=== PATIENT | female | born 1945 | race Two or more races ===

== ENCOUNTER 2017-04-04 11:33 | Inpatient (IN) | payer SELFPAY ==
[~2017-04-04] VITALS: Ht 152.4 cm; Wt 51.3 kg
--- NOTE | ~2017-04-04 | ECHO ---
Transthoracic Echocardiography Report (TTE) Demographics Patient Name EMILE PRINGLE, Date of Study 04/05/2017 KERMIT Shaffer Patient Number [id number] Visit Number [id number] Date of 1945 Room Number G6310 Gender Female Number Age 72 year(s) Referring Nataly Mckenna Shearer Operator Aileen RVT, RDCS Physician MD Sierra Physician Interpreting Lito Perdomo MD Grain Spouter Physician Supervising Ordering MD/MLP Physician Nurse Stress Plan Rep Conclusions Contractility Score Summary Normal Left Ventricular contractility was noted. Summary The estimated left ventricular ejection fraction is 60-65%. Mild concentric left ventricular hypertrophy. Diastolic assessment reveals Grade I diastolic dysfunction. Mild mitral regurgitation by color Doppler. There is mild aortic regurgitation by color Doppler. Mild tricuspid regurgitation by color Doppler. Procedure Type of Study TTE procedure:2D Echocardiogram, M-Mode, Doppler , Color Doppler. Procedure Date Date: 04/05/2017 Start: 10:28 AM Study Location: Inpatient Portable Technical Quality: Adequate visualization Indications:Chest pain and Coronary artery disease. Appropriate Use Criteria: 9 Patient Status: Routine HR: 83 bpm BP: 101/59 mmHg Allergies - No known allergies. M-Mode/2D Measurements LV Diastolic Dimension: 4.12 cm LV Systolic Dimension: 2.33 cm LV Septum Diastolic: 1.23 cm LV PW Diastolic: 1.04 cm AO Root Dimension: 2.3 cm Cardiac Output: 4.67 l/min AV Cusp Separation: 1.1 cm RV Diastolic Dimension: 2.14 cm LA volume: 28 ml LVOT: 1.7 cm RV Base: 2 cm LVOT VTI: 24.8 cm RV Mid: 1.74 cm LV Stroke volume: 56.26 ml TAPSE: 2.15 cm TDI-S': 11.7 cm/s Doppler Measurements AV Peak Velocity: 1.45 m/s MV Peak E-Wave: 1.14 m/s AV Peak Gradient: 8.41 mmHg MV Peak A-Wave: 1.37 m/s AV Mean Gradient: 5 mmHg MV E/A Ratio: 0.83 LVOT Peak Velocity: 0.99 m/s MV P1/2t: 66 msec AV P1/2t: 867 msec TR Gradient:22.66 mmHg PV Peak Velocity: 0.94 m/s Estimated RAP:3 mmHg PV Peak Gradient: 3.53 mmHg Estimated RVSP: 26 mmHg Estimated PASP: 25.66 mmHg E' Septal Velocity: 0.06 m/s A' Septal Velocity: 0.12 m/s E' Lateral Velocity: 0.06 m/s A' Lateral Velocity: 0.13 m/s Findings Left Ventricle Mild concentric left ventricular hypertrophy. Diastolic assessment reveals Grade I diastolic dysfunction. Anterior and septal regions demonstrate mild hypokinesis Right Ventricle Normal right ventricle structure and function. Left Atrium Normal left atrial size. Right Atrium Normal right atrial size. Mitral Valve Mild mitral annular calcification. Mild mitral regurgitation by color Doppler. Aortic Valve The aortic valve is mildly sclerotic. There is mild aortic regurgitation by color Doppler. Tricuspid Valve Mild tricuspid regurgitation by color Doppler. Pulmonic Valve Normal pulmonic valve structure and function. Pericardial Effusion No evidence of pericardial effusion. Pleural Effusion No evidence of pleural effusion. Contractility Score LV regional wall motion:(0-Non visualized 1-Normal 2-Hypokinesis 3-Akinesis 4-Dyskinesis 5-Aneurysm) Signature dtt: Conor Morse (cardio) dtd: 04/05/17 1028 Physician Self Edit
--- NOTE | ~2017-04-04 | DS ---
PATIENT'S NAME: [facility] AGE: 72 Y [address] ROOM: [place] [address] LOCATION: GPCU ADMIT DATE: 04/04/2017 Discharge Summary DISCHARGE DATE: 04/07/2017 FAMILY PHYSICIAN: PHYSICIAN, NO ATTENDING PHYSICIAN: Vikram Ingram DISCHARGE DIAGNOSES: 1. ST-elevation myocardial infarction. 2. Diabetes mellitus. 3. Hyperlipidemia. 4. High-risk medications. PROCEDURES: 1. On 04/04/2017, the patient was admitted and underwent emergent left heart catheterization, PTCA stenting of the LAD. 2. On 04/05/2015, echocardiogram showing an EF of 60% to 65%, grade 1 diastolic dysfunction. LABORATORY DATA: Troponin peaked at 48.4, CPK peaked at 821, CK-MB 37.6. Hemoglobin A1c was 10.8. Cholesterol 99, HDL 79, LDL was 37. Hemoglobin 14.6 to 10.8, hematocrit 41 to 33. Potassium was stable at 4.0, BUN 14, creatinine 0.7. HOSPITAL COURSE: This is a 72-year-old, [place]auan-speaking female from [place], who presented with complaints of shortness of breath. It became worse, therefore her family brought her into the ER. She is here from [place] visiting family. Her initial EKG showed ST elevation myocardial infarction and she was taken directly to heart catheterization receiving a stent to the LAD. Her pain was completely resolved after the heart catheterization. Her echocardiogram showed preserved EF and she was placed on beta-esme, DARIEL inhibitor, and aspirin therapy in addition to Brilinta. On 04/07/2017, she was discharged to home with the following medications: 1. Metformin 500 mg b.i.d. 2. NovoLog insulin 20 units in the morning and 12 in the evening. 3. NPH 12 units at bedtime. 4. Atorvastatin 20 mg daily. 5. Aspirin 81 mg daily. 6. Metoprolol 25 mg b.i.d. 7. Brilinta 90 mg b.i.d. She was instructed to follow up in [address] Morse for further evaluation. The patient verbalized understanding. Discharge was done through an enterprise services manager. PATIENT'S NAME: [facility] AGE: 72 Y [address] ROOM: [address] [place], [place] [address] LOCATION: GPCU ADMIT DATE: 04/04/2017 Discharge Summary DISCHARGE DATE: 04/07/2017 FAMILY PHYSICIAN: CHRISSY PATEL ATTENDING PHYSICIAN: Vikram Ingram GENA JENSEN APRN FOR MD ROXANNE GALLO/modl /[id number] d: 04/12/17623 t: 04/22/17 1011, DISCHARGE SUMMARY
--- NOTE | ~2017-04-04 | ER ---
PATIENT'S NAME: [facility] AGE: 72 Y [address] ROOM: [place] [address] LOCATION: GPCU ADMIT DATE: 04/04/2017 ER/Outpatient Report DISCHARGE DATE: FAMILY PHYSICIAN: PHYSICIAN, NO ATTENDING PHYSICIAN: YESSI CAMACHO Admission date and time documented on the medical record. I saw the patient at 1142 hours. CHIEF COMPLAINT: Shortness of breath. HISTORY OF PRESENT ILLNESS: This patient is a 72-year-old female, who around midnight developed shortness of breath. No chest pain. No nausea, vomiting, diaphoresis. No lightheadedness, dizziness, or weakness. Brought in by a private vehicle for evaluation. Just prior to coming in, her shortness of breath resolved. No headache, eyes, ears, nose, throat, neck, or spine pain. No abdominal pain. No diarrhea. No urinary frequency, urgency, or dysuria. No incontinence. No joint or muscle swelling, redness, or pain. No skin eruptions or rash. No history of neuro changes. She is an insulin-dependent diabetic. No psych issues. HOME MEDICATIONS: See attached medication list. ALLERGIES: NONE. SOCIAL HISTORY: Nonsmoker, nondrinker. SIGNIFICANT PAST MEDICAL HISTORY: Insulin-dependent diabetes mellitus, dyslipidemia. OPERATIONS: None. REVIEW OF SYSTEMS: All systems reviewed by me are negative with the exception of those discussed in the history of present illness. PHYSICAL EXAMINATION: VITAL SIGNS: Temperature 98.3 tympanic, pulse 100, respirations 16, blood pressure 176/81, O2 saturation on room air is 97%. Bishop Coma Scale was 15. PATIENT'S NAME: [facility] AGE: 72 Y [address] ROOM: [place] [address] LOCATION: GPCU ADMIT DATE: 04/04/2017 ER/Outpatient Report DISCHARGE DATE: FAMILY PHYSICIAN: PHYSICIAN, CHRISSY ATTENDING PHYSICIAN: YESSI CAMACHO HEAD: Normocephalic. EYES, EARS, NOSE, THROAT: Clear. Mucous membranes moist. NECK: No nuchal rigidity. No thyromegaly or cervical adenopathy. No carotid bruits. LUNGS: Clear. No rales, rhonchi, or wheezes. HEART: Regular. Pulses are palpable. No chest wall or ribcage pain to palpation. ABDOMEN: Soft, nondistended, nontender. Good bowel tones. No organomegaly or abnormal mass palpable. EXTREMITIES: Without peripheral edema, cyanosis, or deformity. NEUROVASCULAR: Intact. SKIN: Clear. No skin eruptions or rash. LABORATORY DATA AND X-RAYS: Chest x-ray shows no acute infiltrate but does look like she has some increased vascular congestion. EKG, I did review with silk washing machine operator who thought that she was having lateral myocardial infarction. Laboratory showed a white count of 14,600, 75 segs, 17 lymphs, 7 monos, 1 eo, hemoglobin was 13.9, hematocrit 41.0, platelet count is 282,000. PTT was 26, pro-time was 10.3 with an INR 0.98. D-dimer was normal at 0.48. ProBNP was elevated 5453. CMS was normal except for an elevated glucose of 338, elevated alkaline phosphatase 181, elevated AST of 85. Magnesium was 2.0. CPK was elevated at 804. CK-MB was elevated at 37.1. Troponin was elevated at 21.3. EMERGENCY DEPARTMENT COURSE: I did give the patient 4 baby aspirin. I did start her on heparin 5000 unit bolus followed by 1200 units/hour IV drip infusion. IMPRESSION: 1. Shortness of breath secondary to acute myocardial infarction, suspected lateral with possible congestive heart failure. 2. Insulin-dependent diabetes mellitus type 2. 3. History of dyslipidemia. PLAN: I did discuss this patient with Dr. Conor Morse, silk washing machine operator. Dr. Morse did review the EKG, did come down to see the patient, and decided to take the patient to laboratory immunologist. I did discuss my findings and recommendations with the patient through an pharmacy assistant. The patient did understand. Dr. Morse is going to evaluate the patient and will proceed on his recommendations. Accumulated critical care time 30 minutes. PATIENT'S NAME: KERMIT SOTO [facility] AGE: 72 Y [address] ROOM: G[address] [place], [place] [address] LOCATION: GPCU ADMIT DATE: 04/04/2017 ER/Outpatient Report DISCHARGE DATE: FAMILY PHYSICIAN: PHYSICIAN, NO ATTENDING PHYSICIAN: YESSI CAMACHO MD MILTON MAYFIELD/kamryn /[id number] d: 04/04/172008 t: 04/05/17 0613, OUTPATIENT REPORT
--- NOTE | ~2017-04-04 | CON ---
PATIENT'S NAME: [facility] AGE: 72 Y [address] ROOM: [place] [address] LOCATION: GPCU ADMIT DATE: 04/04/2017 Consultation DISCHARGE DATE: 04/07/2017 FAMILY PHYSICIAN: PHYSICIAN, NO ATTENDING PHYSICIAN: Vikram Ingram REFERRING PHYSICIAN: Conor Morse MD REFERRING PHYSICIAN: Vikram Ingram MD HISTORY OF PRESENT ILLNESS: This is a 72-year-old female, who presented to the emergency room yesterday with complaints of shortness of breath. Around midnight, she developed increased shortness of breath, but no chest discomfort. She denied nausea or vomiting. She had not had any problems with dizziness, lightheadedness, or weakness. She was brought to the emergency room by private car for the shortness of breath. An EKG showed that she was having ST-elevation myocardial infarction and she was taken directly to heart catheterization where she received a stent to the LAD. The patient is normally from [place] and was here visiting family, I believe that it was her daughter who had a baby. She had been in [place] prior to stopping in [place]. She is an insulin-dependent diabetic. She has been having some exertional shortness of breath. She denies previous history of coronary artery disease. PAST MEDICAL HISTORY: 1. Diabetes mellitus. 2. Hypertension. PAST SURGICAL HISTORY: 1. Total vaginal hysterectomy. 2. LASIK eye surgery in 2012. 3. Left heart catheterization, 04/04/2017 and stent to the LAD. 4. She has had 14 children vaginally. 5. A full set of dentures. FAMILY HISTORY: Mother of colon cancer at the age of 81. Father is alive but has never been a part of her or her siblings life. She has a brother who has heart troubles, he of cancer, and another brother who is an alcoholic which caused his demise. She is lifelong nonsmoker. She does not drink alcohol. ALLERGIES: NO KNOWN MEDICATION ALLERGIES. PATIENT'S NAME: [facility] AGE: 72 Y [address] ROOM: [place] [address] LOCATION: GPCU ADMIT DATE: 04/04/2017 Consultation DISCHARGE DATE: 04/07/2017 FAMILY PHYSICIAN: PHYSICIAN, NO ATTENDING PHYSICIAN: Vikram Ingram HOME MEDICATIONS: 1. Atorvastatin 20 mg every day. 2. Insulin Humulin 12 units subcutaneous every bedtime and 20 units every a.m. 3. Metformin 500 mg every day. MEDICATIONS IN THE HOSPITAL: 1. Aspirin 81 mg daily, now Brilinta 90 mg b.i.d. 2. Lipitor 80 mg daily. 3. Lopressor 25 mg b.i.d. 4. Vasotec 2.5 mg daily. 5. We will continue with her same insulin. 6. Metformin will be held due to the heart catheterization. REVIEW OF SYSTEMS: Obtained from the nurses intake: HEAD: No history of headache. EYES: No blurred vision or double vision. EARS: No problems with hearing. NOSE: No epistaxis or rhinorrhea. MOUTH: No gingival bleeding. She does have a full set of dentures. THROAT: Denies sore throat, hoarseness, or difficulty swallowing. PULMONARY: No cough or hemoptysis. She was complaining of some shortness of breath with exertion. GASTROINTESTINAL: Negative for nausea, vomiting, or diarrhea. No melena or hematochezia. GENITOURINARY: Negative for urinary frequency or urgency. She is post total hysterectomy. MUSCULOSKELETAL: No complaints of arthralgias or myalgias. NEUROLOGIC: Denies numbness or tingling or feeling off-balance. PHYSICAL EXAMINATION: VITAL SIGNS: She is 5 feet tall, weighs 117 pounds. Blood pressure is 130/60, heart rate is 70, and respirations are 18. SKIN: Warm, dry. HEENT: Mucous membranes are pink. Pupils are equal. They did react briskly. NECK: Soft and supple. No lymphadenopathy. No thyromegaly. JVD is flat. RESPIRATORY: Lung sounds are clear without evidence of wheezes, rales, or rhonchi. CARDIOVASCULAR: Regular with a normal S1 and S2. ABDOMEN: Soft. Bowel sounds are present. EXTREMITIES: Show no peripheral edema. No clubbing and no cyanosis. Distal pulses are 2+/4. LABORATORY DATA AND IMAGING STUDIES: PATIENT'S NAME: KERMIT SOTO [facility] AGE: 72 Y [address] ROOM: [place] [address] LOCATION: GPCU ADMIT DATE: 04/04/2017 Consultation DISCHARGE DATE: 04/07/2017 FAMILY PHYSICIAN: PHYSICIAN, NO ATTENDING PHYSICIAN: Vikram Ingram Cardiac enzymes; troponin I was 21.3, today is down to 17; CPK was 804, now 498; ProBNP was 5453; and CK-MB was 37.1, today is 14.6. Her hemoglobin is 11.4 to 13.9, platelets are 282,000. BUN was 14, creatinine 0.8. Glucose on admission was 338. Her hemoglobin A1c was found to be 10.8, cholesterol 99, triglycerides 79, HDL 47, and her LDL was 37. Chest x-ray showed no acute infiltrates, but she did have some increased vascular congestion. EKG was showing lateral changes, ST-elevation. ASSESSMENT AND PLAN: 1. ST-elevation myocardial infarction. She was taken directly to heart catheterization. Underwent a left heart catheterization with percutaneous transluminal coronary intervention and stenting of the left anterior descending. An echocardiogram will be obtained and further recommendations will be forthcoming regarding her ejection fraction. 2. Insulin-dependent diabetes mellitus. We will defer that to Dr. Ingram. 3. History of dyslipidemia. She is to continue with her statin therapy. The assessment and plan, history of present illness, and physical exam are per Dr. Morse. GENA JENSEN APRN FOR MD ROXANNE GALLO/kamryn /[id number] d: 04/05/17 1828 t: 04/11/17 0953, CONSULTATION REPORT
--- NOTE | ~2017-04-04 | HP ---
PATIENT'S NAME: EMILE HUDSON [facility] AGE: 72 Y [address] [place]OM: [facility] [place] [place] [address] [facility] ADMIT DATE: 04/04/2017 History & Physical DISCHARGE DATE: FAMILY PHYSICIAN: PHYSICIAN, NO ATTENDING PHYSICIAN: YESSI CAMACHO DATE OF SERVICE: CHIEF COMPLAINT: Chest pain and shortness of breath. HISTORY OF PRESENT ILLNESS: This is a 72-year-old [place] female who presented to the emergency room with shortness of breath. She was seen here by Dr. Colin Jules. I have reviewed the emergency room notation, lab, and her x-rays and accepted her. The patient presented to the emergency room and was found by chest x-ray to have no acute infiltrate, but perhaps increased vascular congestion. Her EKG suggested a possible lateral wall MA. [place] [address], hemoglobin 13.9, and platelet count was adequate. PTT was 26, pro-time 10.8, and INR was 0.98. D-dimer was 0.48. ProBNP was 5453. CMS was normal. Blood glucose was up at 338, alkaline phosphatase 181, AST 85, magnesium was 2. CPK was elevated at 804, CPK-MB was 37.1, troponin up at 21.3. The patient was given aspirin in the emergency room and started on heparin drip and seen in consultation by Dr. Conor Morse, transformer molder, and the patient was taken to the labor mediator. I have been asked to follow her as a primary care physician because she does not have one here in town. When I see her on the morning of 04/05/2017, she is resting quietly in bed with the family member at the bedside, but she does not speak any Georgian. PHYSICAL EXAMINATION: VITAL SIGNS: Noted. HEENT: Exam is benign. NECK: Unremarkable. I did not listen for a bruit. HEART: Regular rhythm. I do not hear a murmur. LUNGS: Decreased throughout. ABDOMEN: Soft. PELVIC AND RECTAL: Not done. EXTREMITIES: Trace edema. NEUROLOGIC: Grossly intact. IMPRESSION: 1. Acute lateral wall myocardial infarction. 2. Diabetes mellitus type 2 with poor control. 3. History of dyslipidemia. PATIENT'S NAME: [facility] AGE: 72 Y [address] ROOM: [place] [address] [facility] ADMIT DATE: 04/04/2017 History & Physical DISCHARGE DATE: FAMILY PHYSICIAN: PHYSICIAN, NO ATTENDING PHYSICIAN: YESSI CAMACHO 4. Jqk-IA-qobmrivph myocardial infarction. PLAN: Follow daily. Diabetic teaching. Sliding scale insulin. Sugars a.c. and q.h.s. MD JASON ALVARADO/kamryn /[id number] D: [id number] T: [id number] HISTORY & PHYSICAL
--- NOTE | ~2017-04-04 | CATH ---
Cardiac Diagnostic + PCI Report Demographics Patient Name EMILE PRINGLE Gender Female KERMIT Shaffer Date of 1945 Age 72 year(s) Patient Number [id number] Date of Study 04/04/2017 Visit Number [id number] Room Number G63[address] [place] [id number] Ht 152.4 cm Wt 109 kg Referring Lito Perdomo MD Primary Physician Physician Performing Lito Perdomo MD Secondary Physician Physician Diagnostic Lito Perdomo MD Assisting Physician Physician Interventional Lito Perdomo MD Physician Litigation Partner Physician Findings and Conclusions Diagnostic Findings and Conclusion 1 Vessel CAD Diagnostic Recommendations PCI of LAD Interventional Findings and Conclusion Successful PCI of the mid LAD coronary artery using a Drug Eluting stent using a 2.5 X 15 Emerge and 2.75 X 20 Promus inflated to 3.0 with 0% residual Interventional Recommendations DAPT X 1 year Manual pressure for hemostasis Procedure Description The patient was brought to the diagnostic cardiac catheterization-EP laboratory by emergency personal. Physician deemed procedure as EMERGENT. The planned puncture-incision site(s) were shaved and prepped with ChloraPrep and draped in the usual sterile manner. Conscious sedation, supplemental oxygen, and pain control medications were delivered by a registered nurse under physician guidance. Surface ECG rhythm, blood pressure measurement, and pulse oximetry were monitored throughout the procedure. Arterial access. The access site was infiltrated with lidocaine. The vessel was entered with the Seldinger technique. A sheath was advanced into the vessel and used for catheter placement. Selective left coronary angiography. A catheter was advanced into the left coronary vessel ostium under Fluoroscopic guidance. Contrast was injected by hand. Images were obtained in multiple projections. Selective right coronary angiography. A catheter was advanced into the right coronary vessel ostium under fluoroscopic guidance. Contrast was injected by hand. Images were obtained in multiple projections. Left heart catheterization. A catheter was advanced across the aortic valve to the left ventricle under fluoroscopic guidance. Resting hemodynamics were obtained. Angioplasty and Stent Placement: A guiding catheter was used to intubate the vessel. A 0.14 wire was then used to cross the lesion. A balloon catheter was placed across the lesion and inflated. The balloon catheter was then removed. A Drug Eluting Stent was placed and inflated. Post placement angiograms were performed. Arterial artery hemostasis was achieved. The patient was transferred to a regular nursing floor via cart accompanied by a nurse. The patient left the laboratory in stable condition. Diagnostic Cath Status: Emergency Interventional Cath Status: Emergency Procedure Procedure Type Diagnostic procedure:Angiography:, Coronary Angios /[facility] PCI procedure:Drug Eluting Coronary Stent:, LAD Indications: Acute NC. The procedure was explained in detail to the patient. Risks, complications and alternative treatments were reviewed. Written consent was obtained. Medications Reviewed with Patient prior to Procedure. Angiographic Findings Dominance: Right Cardiac Arteries and Lesion Findings LMCA: Normal (0% Stenosis).Medium caliber LAD: Medium caliber, distal vessel is small. Diagonal 1 and 2 are medium and okay Lesion on Mid LAD: Proximal subsection.99% stenosis 20 mm length reduced to 0%. Pre procedure PHILIPPE II flow was noted. Post Procedure PHILIPPE III flow was present. The guidewire cross was unsuccessful.The lesion was diagnosed as a moderate risk lesion.Culprit lesion. Devices used - Pagar.me Wire .014 x 180. Number of passes: 1. - Emerge Balloon 2.5 x 15. 2 inflation(s) to a max pressure of: 6 kristine. - Promus Premier 2.75 x 20 Stent. 2 inflation(s) to a max pressure of: 15 kristine. LCx: Nondominant, medium caliber. OM 1 is small, OM 2 is medium with mid plaque Lesion on Prox CX: Ostial.30% stenosis . RCA: Normal (0% Stenosis).Medium, diffuse plaque. PL is small and okay, PDA is medium with plaque. Coronary Tree Procedure Data Procedure Date Date: 04/04/2017Start: 01:25 PMEnd: 02:30 PM Entry Locations - Retrograde Percutaneous access was performed through the Right Femoral artery (Primary location). A 6 Fr sheath was inserted. Hemostasis was successfully obtained using Manual Compression. Closure Comments: Manual pressure held for 20min by Xiomara Cerrato CVT. Fem-o-stop placed post manual pressure due to high ACT. Procedure Medications Order and Administration + + + + + !Time !Medication !Dosage !Route ! + + + + + !04/04/2017 01:15 PM !Heparin (ACC_3) ! !I.V. drip ! + + + + + !04/04/2017 01:22 PM !0.9% NaCl !125 ml/hr !I.V. drip ! + + + + + !04/04/2017 01:24 PM !Fentanyl !50 mcg !I.V. ! + + + + 04/04/2017 01:28 PM !Oxygen !2 l/min !NC ! + + + + + !04/04/2017 01:47 PM !Nipride !60 mcg !I.C. ! + + + + + !04/04/2017 01:52 PM !Nipride !80 mcg !I.C. ! + + + + + !04/04/2017 01:59 PM !Reopro (Abciximab) (ACC_7) ! !I.V. drip ! + + + + + !04/04/2017 02:04 PM !Protamine !5 mg !I.V. ! + + + + + 04/04/2017 02:04 PM !Brilinta (Ticagrelor) (ACC_20) !180 mg !P.O. ! + + + + + Devices Used - A6 Fr. BS JL 4 Diag. Catheterwas used for:Left coronary angiography. - A6 Fr. BS JR 4 Diag. Catheterwas used for:Right coronary angiography. - A6 Fr. BS Angled Pigtail Diag. Catheterwas used for:LV Pressures. - A6 Fr. XB 3.5 Guide Catheterwas used for:LAD Intervention. Contrast Material - Isovue [id number] ml Fluoroscopy Time: Diagnostic: 9:18 minutes. Total: 9:18 minutes. Fluoroscopy Dose: Diagnostic: 1464 mGy. Total: 1464 mGy. Estimated Blood Loss: 5 ml. Additional [facility] PCI Information PCI Indication:PCI for high risk Non-STEMI or unstable angina. Medical History Performed Procedures and Imaging Results - No [facility] stress or imaging studies were performed. Allergies - No known allergies. Risk Factors The patient risk factors include:insulin-treated diabetes mellitus, last creatinine: 0.8 mg/dl and creatinine clearance: 107.77 ml/min. Admission Data Admission Date: 04/04/2017 Admission Time: 01:09 PM Admit Source: Emergency department Insurance Payors: None. Admission Medications + +------+-------+ + + + + !Medication!Dosage!Times !Last !Last !Administered !Comments ! ! ! !Per Day!Delivery !Delivery ! ! ! ! ! ! !Date !Time ! ! ! + +------+-------+ + + + + !Statin ! ! ! ! !Yes ! ! !(any) ! ! ! ! ! ! ! + +------+-------+ + + + + Clinical Evaluation Leading to Procedure - The patient's CAD presentation was assessed as: STEMI.The symptom onset was first noted on 04/04/2017 12:00 PM - The patient's anginal syndrome during the past two weeks was assessed as: Class IV according to the [place] Cardiovascular Society Classification System (CCS). Hemodynamics Condition: Rest O2 Consumption: Estimated: 213.68Heart Rate: 108 bpm Pressures (mmHg) +-----+ + !Site !Pressure ! +-----+ + !AO !163/77 (113) ! +-----+ + !LV !154/0 ,8 ! +-----+ + !LV !147/0 ,6 ! +-----+ + !AO !155/61 (106) ! +-----+ + !LV !150/0 ,7 ! +-----+ + Valve Gradients and Areas + +---------+---------+---------+ +---------+ + !Valve !Peak !Mean !Area !Index !Flow !Source ! + +---------+---------+---------+ +---------+ + !Aortic !0 !0 ! ! ! ! ! + +---------+---------+---------+ +---------+ + !Aortic !0 !0 ! ! ! ! ! + +---------+---------+---------+ +---------+ + Shunts Oxygen Values O2 Capacity 189.04 O2 Consumption 213.68 Discharge Data Discharge Date: 04/07/2017 Hospital Status: Inpatient Signatures dtt: Conor Morse (cardio) dtd: 04/04/17 1325 Physician Self Edit
[2017-04-04 12:06] LABS: BASOPHIL % 0.3 %; EOSINOPHIL # 0.2 K/uL (0.0-0.5); EOSINOPHIL % 1.2 %; HEMOGLOBIN 13.9 g/dL (10.0-15.0); IMMATURE GRANULOCYTE % 0.3 %; LYMPHOCYTE # 2.5 K/uL (0.8-4.0); MCH 30.7 pg (27.0-34.0); MCHC 33.9 gm/dL (32.0-36.5); MCV 90.5 fl (83.0-98.0); MONOCYTE % 6.6 %; NEUTROPHIL # (ANC) 10.9 K/uL (1.8-7.8); NEUTROPHIL % 74.6 %; NRBC % 0 /100WBC (0-0.00); PLATELET COUNT 282 K/uL (150-450); RBC 4.53 M/uL (3.50-5.50); RDW-CV 12.5 % (11.9-14.6); WBC 14.6 K/uL (4.0-11.0)
[2017-04-04 12:16] LABS: INR - (THERAPEUTIC) 0.98 (0.92-1.07); PROTIME 10.3 SECONDS (9.8-11.4); PTT 26 SECONDS (25-32)
[2017-04-04 12:24] LABS: ALBUMIN 3.5 gm/dL (3.5-5.0); ANION GAP 11.2 (10.0-19.0); CALCIUM 8.5 mg/dL (8.5-10.5); CREATININE 0.8 mg/dL (0.5-1.1); POTASSIUM 4.2 mMol/L (3.7-5.1); TOTAL BILIRUBIN 0.6 mg/dL (0.0-1.5); TOTAL PROTEIN 7.7 g/dL (6.0-8.4)
[2017-04-04] MEDS ORDERED: GLUCOPHAGE500 MG PO (17:56)
[2017-04-04] MEDS ORDERED: NOVOLIN-N100 UNIT/M SUB-Q ×2 (17:58→18:00)
[2017-04-04] MEDS ORDERED: LIPITOR20 M1 PO (18:01)
--- NOTE | 2017-04-05 05:32 | NUR ---
Significant Event: PT A/O X3. VSS. SBP 120'S HR 90-100. FEMO-STOP REMOVED GAUZE AND TEGADERM APPLIED, C/D/I. GROIN SITE SOFT AND ECCHEMOTIC. CARDIAC ENZYMES TRENDING DOWN. NON-LUXEMBOURGISH SPEAKING. PATIENT CHECKS OWN BLOOD SUGAR ONCE A DAY. TYLENOL GIVEN X1 FOR HEADACE. O2 AT 2 L THROUG NIGHT. 2 IV'S IN LEFT ARM SL. FAMILY AT BEDSIDE. PATIENT AND FAMILY REFUSED BED ALARM, BUT DAUGHTER HAS HELPED ASSISTING PT TO BATHROOM. PT VOIDED X2. Follow up: FOLLOW CARE PLAN
[2017-04-05 06:24] LABS: BASOPHIL % 0.4 %; EOSINOPHIL # 0.1 K/uL (0.0-0.5); EOSINOPHIL % 0.6 %; HEMATOCRIT 33.4 % (33.0-46.0); HEMOGLOBIN 11.4 g/dL (10.0-15.0); IMMATURE GRANULOCYTE % 0.4 %; LYMPHOCYTE # 2.2 K/uL (0.8-4.0); MCH 30.9 pg (27.0-34.0); MCHC 34.1 gm/dL (32.0-36.5); MCV 90.5 fl (83.0-98.0); MONOCYTE # 0.8 K/uL (0.0-1.0); MONOCYTE % 7.2 %; MPV 9.7 fl (9.4-12.4); NEUTROPHIL # (ANC) 7.7 K/uL (1.8-7.8); NEUTROPHIL % 71.4 %; NRBC % 0 /100WBC (0-0.00); PLATELET COUNT 258 K/uL (150-450); RBC 3.69 M/uL (3.50-5.50); RDW-CV 12.6 % (11.9-14.6); WBC 10.8 K/uL (4.0-11.0)
[2017-04-05 06:53] LABS: ALBUMIN 2.8 gm/dL (3.5-5.0); CALCIUM 8.3 mg/dL (8.5-10.5); CREATININE 0.7 mg/dL (0.5-1.1); TOTAL PROTEIN 6.5 g/dL (6.0-8.4)
[2017-04-05 07:01] LABS: TOTAL BILIRUBIN 0.8 mg/dL (0.0-1.5)
--- NOTE | 2017-04-05 16:41 | NUR ---
Significant Event: VSS AND RA. AFEBRILE. SBPS 100-110S. DENIES CP. UP AND AMBULATES ROBERTO X2 AND UP TO RECLINER MOST OF DAY. RT)GROIN REMAINS SOFT, C/D/I, AND ECCHYMOTIC. VOIDS WITH ADEQUATE UOP. ECHO DONE. AC/HS ACCUCHECKS WITH MOD SSI COVERAGE ADDED. BS 200S-300S THIS SHIFT. FAMILY AND SEISMOMETER OPERATOR ASSISTED WITH INTERPRETING THIS SHIFT. Follow up: CONTINUE PLAN OF CARE; DIABETIC ED TO SEE WITH [employer] WORKER PRIOR TO D/C ON FRIDAY.
--- NOTE | 2017-04-06 05:46 | NUR ---
Significant Event: A/0X3. PORTUGUESE SPEAKING ONLY. FAMILY IN ROOM TO HELP TRANSLATE. SBA. TURNS SELF. AFEBRILE. VSS ON RA. DENIES CHEST PAIN OR PAIN OF ANY SORT. IV TO L) FA X2 SL. R) GROIN SOFT. TENDER TO TOUCH. BRUISED. NO S/S OF OOZING OR HEMATOMA. CSM WNL. DRESSING C/D/I. VOIDS FINE. NO BM THIS SHIFT. Follow up: CONTINUE WITH PLAN OF CARE. DM EDUCATOR TO SEE FRIDAY THEN D/C?
--- NOTE | 2017-04-06 17:13 | NUR ---
Significant Event: VSS ON RA. DENIES CHEST PAIN. AMBULATED IN ROBERTO X2. UP IN ROOM AD BILLY. SHOWERED TODAY. ROSIE ASSISTED WITH INTERPRETATION. BRILINTA CARD GIVEN TO PT. R) GROIN REMAINS SOFT AND ECCHYMOTIC. DRESSING REMOVED, BANDAID APPLIED. Follow up: CONTINUE PLAN OF CARE. PROBABLE HOME TOMORROW AFTER DIABETIC ED.
--- NOTE | 2017-04-06 17:57 | NUR ---
I HAVE REVIEWED THE CHARTING OF GISELA DONAHUE RN (PRECEPTEE) AND I AGREE WITH IT FOR TODAYS'S SHIFT.
--- NOTE | 2017-04-07 04:18 | NUR ---
Significant Event: A/0X3. TAMAZIGHT SPEAKING ONLY. FAMILY IN ROOM WITH PATIENT THAT HELPS WITH TRANSLATING AND CARES. SBA. TURNS SELF. SLIGHT TEMP OF 99.2 BEGINNING OF SHIFT BUT AFEBRILE SINCE. VSS ON RA. SBP 96-104. MAP >69. HELD LOPRESSOR AT HS DUE TO LOW PRESSURES. IV TO L) FA X2 SL. DENIES PAIN. R) GROIN SOFT. BRUISED. NO HEMATOMA. BANDAID INACT. TENDER TO TOUCH. DM EDUCATION THIS AM WITH COGNOS ANALYST. Follow up: CONTINUE WITH PLAN OF CARE. DM TEACHING THIS AM THEN HOME
[2017-04-07] MEDS ORDERED: ASPIRIN LO-DOSE81 MG PO (08:54)
[2017-04-07] MEDS ORDERED: LOPRESSOR25 MG PO (08:58)
[2017-04-07] MEDS ORDERED: BRILINTA90 MG PO (09:01)
--- NOTE | 2017-04-07 10:41 | NUR ---
Diabetes consult: Patient reports having Type II diabets for 10 years. the patient is here visiting from [place] and will be returning. Diabetes education was provided with the help of the Welsh interpretor, Joy. Patient reports that she does check blood sugars twice daily. Target goals of 100-180 provided for this patient. She reports needing insulin and will be dismissed with scripts for NPH to help with cost. Patient was informed to purchas this at [facility] as it is cheaper. Patient knows very little regarding diet and carb count. Simple survival education such as which foods are carbs, portion sizes, and limiting carb choices to 3 servings per meal was discussed. Patient is staying with family and reports she will be returing to [place]. She was encouraged to continue taking her insulin, checking blood sugars and to take her glucometer to her primary physician to review in follow up.
--- NOTE | 2017-04-07 11:08 | NUR ---
PATIENT IS A/OX3, VSS ON ROOM AIR. WALKED IN HALLS TODAY WITH CARDIAC REHAB. RIGHT GROIN IS BRUISED, NO HEMATOMA NOTED TO SITE, COVERED WITH BAND-AID AND C/D/I. FAMILY HERE IN ROOM. DISMISSAL INSTRUCTIONS, POST CATH INSTRUCTIONS, NEW MEDICATIONS AND DIABETES EDUCATION GONE OVER WITH PATIENT AND FAMILY WITH CHARLETTE GARCIA INTERPERTOR. NO FURTHER QUESTIONS AT THIS TIME, ANSWERED ALL WITH CHARLETTE. IV'S REMOVED WITHOUT DIFFICULTLY TO LEFT FOREARM. ALL BELONGINGS SENT HOME WITH PATIENT. PNEUMONIA VACCINE GIVEN BEFORE DISMISSAL.
== END 2017-04-07 11:05 | disposition disaster alternative care site (69) | DRG 247 ==
LOC: GMED 11:33 → GPCU 13:09
PROVIDERS: Emergency Medicine; Internal Medicine Interventional Cardiology; ADMIT Family Medicine
DX: I21.29 ST elevation (STEMI) myocardial infarction involving other sites (principal); I95.9 Hypotension, unspecified; E11.65 Type 2 diabetes mellitus with hyperglycemia; I25.10 Atherosclerotic heart disease of native coronary artery without angina pectoris; E78.5 Hyperlipidemia, unspecified; Z79.4 Long term (current) use of insulin; Z95.5 Presence of coronary angioplasty implant and graft; Z79.84 Long term (current) use of oral hypoglycemic drugs; Z79.82 Long term (current) use of aspirin; Z23 Encounter for immunization
CPT/HCPCS: C1725; C1769; C1874; C1887; C9606; G0009; J0130; J1644; J2720; J3010; J7030; J7050; J7060

== ENCOUNTER 2017-04-14 05:31 | Emergency (ER) | payer SELFPAY ==
--- NOTE | ~2017-04-14 | ER ---
PATIENT'S NAME: GORDON CARCAMO [facility] AGE: 72 Y [address] ROOM: [place] [address] LOCATION: ED ADMIT DATE: 04/14/2017 ER/Outpatient Report DISCHARGE DATE: 04/14/2017 FAMILY PHYSICIAN: , NO ATTENDING PHYSICIAN: Ziggy Ortiz CHIEF COMPLAINT: Shortness of breath. HISTORY OF PRESENT ILLNESS: Ms. Gordon Carcamo notes that she has been very short of breath particularly at night, anytime she lays down for the last 3 days. She denies any other shortness of breath with exertion or other activities. She had a STEMI on the of this month. She did receive stenting by Dr. Morse. She was recently discharged on Brilinta. She is originally from [place] and is planning on returning in approximately 2 weeks. She has no other complaints. Denies fever, chills, cough, chest pain, abdominal pain, constipation, diarrhea, back pain, or other concerning signs or symptoms. She denies any swelling of the legs and feet. PAST MEDICAL HISTORY: Documented in the record and reviewed by me. SOCIAL HISTORY: Documented in the record and reviewed by me. MEDICATIONS: Documented in the record and reviewed by me. ALLERGIES: DOCUMENTED IN THE RECORD AND REVIEWED BY ME. REVIEW OF SYSTEMS: All systems were reviewed and negative except as noted in the HPI. PHYSICAL EXAMINATION: VITAL SIGNS: Blood pressure is 185/91, pulse 76, respiratory rate 16, temperature 96.8, and SpO2 is 97% on room air. Pain is rated at 0/10. GENERAL: An age appropriate female, recumbent on the exam table in no apparent pain or distress. NEUROLOGIC: Awake and alert. GCS appears to be 15. No focal deficits. No asymmetry. No gait abnormalities. HEENT: Normocephalic and atraumatic. Eyes are PERRL. Oropharynx is clear. NECK: Supple. Trachea is midline. CHEST: Heart is regular rate and rhythm with no murmurs. PATIENT'S NAME: KERMIT SOTO [facility] AGE: 72 Y [address] ROOM: [place] [address] LOCATION: ED ADMIT DATE: 04/14/2017 ER/Outpatient Report DISCHARGE DATE: 04/14/2017 FAMILY PHYSICIAN: PHYSICIAN, NO ATTENDING PHYSICIAN: Ziggy Ortiz LUNGS: Clear to auscultation bilaterally with no rhonchi, wheezes, or rales. ABDOMEN: Soft, nontender, and nondistended. No rebound or guarding. BACK: Normal to inspection and palpation. EXTREMITIES: Warm and well perfused with no edema or deformities. SKIN: Clean, dry, and intact. LABORATORY DATA AND IMAGING STUDIES: Chest x-ray is unremarkable per my review. No infiltrates. Initial and repeat troponin are detectable at 0.085 and 0.082 respectively. CK-MB from 1.9 down to 1.7. CMS with no electrolyte abnormalities. Glucose was mildly elevated at 160. No renal abnormalities. Alkaline phosphatase of 144, otherwise, unremarkable AST and ALT. Magnesium 2.2. ProBNP is 3167, down from 5000 at admission. INR is 1. CBC with no appreciable abnormalities. EKG; initial and repeat are notable for significant T-wave abnormalities that appear stable from April 05 of this year with some slight morphologic changes, but no dynamic changes today. IMPRESSION: Orthopnea. EMERGENCY DEPARTMENT COURSE: The patient was seen and evaluated as above. Not consistent with PE. No evidence of pneumonia. Heart failure does not appear to be the case that the patient does have an elevated proBNP, however, she has no clinical findings consistent with heart failure other than orthopnea. Her marker is in fact improved since discharge. I discussed the case with Dr. Morse, the patient's primary corrections sergeant who performed the stenting procedure and he thinks this is likely related to the Brilinta. We will stop the Brilinta under Dr. Morse's immediate direction. We will initiate Plavix and change her aspirin dosing to a full 325 daily. The patient was directed to see Dr. Morse in clinic at 1230 hours or call the office for an appointment at the earliest possible convenience. The patient remained asymptomatic in the emergency department and was discharged in good condition. A video interactive media director was used to convey all information and facilitate all conversations. MD RICHA CUADRA/kamryn /[id number] d: [id number]/[id number] t: 04/19/17 0731, OUTPATIENT REPORT
[~2017-04-14 05:31] MED LIST: ASPIRIN LO-DOSE81 MG PO; BRILINTA90 MG PO; GLUCOPHAGE500 MG PO; LIPITOR20 M1 PO; LOPRESSOR25 MG PO; NOVOLIN-N100 UNIT/M SUB-Q
[2017-04-14 06:06] LABS: HEMATOCRIT 34.5 % (33.0-46.0); HEMOGLOBIN 11.5 g/dL (10.0-15.0); MCH 30.5 pg (27.0-34.0); MCHC 33.3 gm/dL (32.0-36.5); MCV 91.5 fl (83.0-98.0); MPV 9.3 fl (9.4-12.4); RBC 3.77 M/uL (3.50-5.50); RDW-CV 12.5 % (11.9-14.6)
[2017-04-14 06:07] LABS: PLATELET COUNT 426 K/uL (150-450)
[2017-04-14 06:16] LABS: INR - (THERAPEUTIC) 1.02 (0.92-1.07); PROTIME 10.7 SECONDS (9.8-11.4); PTT 26 SECONDS (25-32)
[2017-04-14 06:31] LABS: ALBUMIN 3.1 gm/dL (3.5-5.0); ALK PHOS 144 IU/L (33-138); ALT 21 IU/L (12-78); ANION GAP 12.2 (10.0-19.0); AST 17 IU/L (10-40); BLOOD UREA NITROGEN 12 mg/dL (6-24); CALCIUM 8.4 mg/dL (8.5-10.5); CHLORIDE 106 mMol/L (96-110); CO2 25 mMol/L (22-32); CPK 126 IU/L (21-215); CREATININE 0.6 mg/dL (0.5-1.1); MAGNESIUM 2.2 mg/dL (1.8-2.6); POTASSIUM 4.2 mMol/L (3.7-5.1); SODIUM 139 mMol/L (135-145); TOTAL PROTEIN 7.6 g/dL (6.0-8.4)
[2017-04-14 06:40] LABS: ABSOLUTE NEUTROPHIL CT (ANC) 4.8 K/uL (1.8-7.8); LYMPHOCYTE # 2.4 K/uL (0.8-4.0); LYMPHOCYTE % 30 %; MONOCYTE # 0.6 K/uL (0.0-1.0); SEGMENTED NEUTROPHIL # 4.8 K/uL (1.8-7.8); SEGMENTED NEUTROPHIL % 60 %
[2017-04-14 06:41] LABS: TOTAL BILIRUBIN 0.4 mg/dL (0.0-1.5)
== END 2017-04-14 09:16 | disposition disaster alternative care site (69) ==
LOC: GMED 05:31
PROVIDERS: Emergency Medicine
DX: R06.01 Orthopnea (principal); I21.3 ST elevation (STEMI) myocardial infarction of unspecified site; Z95.818 Presence of other cardiac implants and grafts